=== PATIENT | female | born 1995 | race Caucasian/White ===

== ENCOUNTER → 2020-04-19 | Outpatient (REF) | payer BC | LOC: M LAB REF 17:15 | PROVIDERS: ATTEND Physician Assistant Medical | DX: Z11.59 Encounter for screening for other viral diseases (principal); Z20.828 Contact with and (suspected) exposure to other viral communicable diseases ==

== ENCOUNTER → 2023-11-15 | Outpatient (REF) | payer BC, OTHER | LOC: M SFHCWAGY 18:06 | PROVIDERS: ATTEND Nurse Practitioner Family | DX: Z12.4 Encounter for screening for malignant neoplasm of cervix (principal); R87.810 Cervical high risk human papillomavirus (HPV) DNA test positive | CPT/HCPCS: 87624; G0123 ==

== ENCOUNTER → 2025-01-12 | Outpatient (REF) | payer OTHER ==
[2025-01-15 15:52] LABS: HPV APTIMA Detected (Not Detected)
== END ==
LOC: M SFHCWAGY 13:20
PROVIDERS: ATTEND Obstetrics & Gynecology
DX: Z12.4 Encounter for screening for malignant neoplasm of cervix (principal); R87.619 Unspecified abnormal cytological findings in specimens from cervix uteri
CPT/HCPCS: 87624; G0123

== ENCOUNTER → 2025-02-03 | Outpatient (REF) | payer OTHER | LOC: M PLALAB 15:36 | PROVIDERS: ATTEND Obstetrics & Gynecology | DX: R87.810 Cervical high risk human papillomavirus (HPV) DNA test positive (principal); D06.9 Carcinoma in situ of cervix, unspecified ==

== ENCOUNTER 2025-02-16 09:36 | Day surgery (SDC) | payer OTHER ==
[~2025-02-16] VITALS: Ht 162.6 cm; Wt 82.9 kg
[~2025-02-16 09:36] MED LIST: MIDOTAB PO
[2025-02-16 10:09] LABS: HEMATOCRIT 39.8 % (36.0-47.0); HEMOGLOBIN 13.7 g/dl (12.0-15.5)
[2025-02-16] MEDS: MIDAZOLAM INJ 2MG/2ML VIAL IV ONE (11:01)
[2025-02-16] MEDS: LR 1,000 ML IV SCH (11:01)
[2025-02-16] MEDS ORDERED: fentaNYL 100 MCG/2 ML INJECTION As Ordered ONE (13:26)
[2025-02-16] MEDS ORDERED: LIDOCAINE 2% 100MG/5ML SDV (FOR ANES.) As Ordered ONE (13:26)
[2025-02-16] MEDS ORDERED: ONDANSETRON 4MG 2ML VIAL As Ordered ONE (13:26)
[2025-02-16] MEDS ORDERED: METOCLOPRAMIDE INJ 10MG/2ML VIAL As Ordered ONE (13:26)
[2025-02-16] MEDS ORDERED: MIDAZOLAM INJ 2MG/2ML VIAL As Ordered ONE (13:26)
[2025-02-16] MEDS ORDERED: propofoL 200 MG/20 ML VIAL As Ordered ONE (13:26)
[2025-02-16] MEDS ORDERED: KETOROLAC 30 MG/ML 1ML VIAL As Ordered ONE (13:26)
[2025-02-16] MEDS ORDERED: dexmedeTOMIDine (4MCG/ML)200MCG/50ML BTL (PRECEDEX) As Ordered ONE (13:26)
[2025-02-16] MEDS ORDERED: ACETAMINOPHEN 1000MG/100ML IV BAG As Ordered ONE (13:31)
[2025-02-16] MEDS: LIDOCAINE W/EPINEPHRINE 1% 20ML VIAL As Ordered ONE (13:35)
[2025-02-16 14:07] VITALS: BP 109/60; TEMP 98.9; O2SAT 97
[2025-02-16] MEDS: IODINE STRONG SOLN 15ML BTL As Ordered ONE (14:41)
== END 2025-02-16 14:35 | disposition home or self-care (01) ==
LOC: M SDC 09:36
PROVIDERS: ATTEND Obstetrics & Gynecology
DX: N87.0 Mild cervical dysplasia (principal); N72 Inflammatory disease of cervix uteri; F12.10 Cannabis abuse, uncomplicated; F41.9 Anxiety disorder, unspecified; Z79.899 Other long term (current) drug therapy; Z88.0 Allergy status to penicillin
CPT/HCPCS: 36415; 57522; 81025; 85014; 85018; 86850; 86900; 86901; 88305; 88307; J0131; J1100; J1885; J2250; J2405; J2765; J3010

== ENCOUNTER → 2025-09-10 | Outpatient (REF) | payer OTHER ==
[2025-09-14 14:06] LABS: HPV APTIMA Not Detected (Not Detected)
== END ==
LOC: M SFHCWAGY 15:03
PROVIDERS: ATTEND Obstetrics & Gynecology
DX: Z11.51 Encounter for screening for human papillomavirus (HPV) (principal)
CPT/HCPCS: 87624; G0123